=== PATIENT | female | born 1995 | race Caucasian/White ===

== ENCOUNTER 2018-09-22 12:15 | Outpatient (CLI) | payer MEDICAID ==
[2018-09-22 13:56] LABS: APPEARANCE,URINE CLEAR; BILIRUBIN,URINE NEGATIVE (NEGATIVE); COLOR,URINE STRAW; GLUCOSE, URINE NEGATIVE (NEGATIVE); KETONES,URINE NEGATIVE (NEGATIVE); LEUKOCYTE ESTERASE,URINE TRACE (NEGATIVE); NITRITE,URINE NEGATIVE (NEGATIVE); PROTEIN,URINE NEGATIVE (NEGATIVE); URINE SPECIFIC GRAVITY 1.004; UROBILINOGEN,URINE NEGATIVE mg/dL (<2.0)
[2018-09-22 14:11] LABS: BACTERIA (WET MOUNT) 4+ BACTERIA SEEN; RBCS (WET MOUNT) NO RBCS SEEN; T.VAGINALIS (WET MOUNT) NO TRICHOMONAS SEEN; WBCS (WET MOUNT) RARE WBCS SEEN; YEAST (WET MOUNT) NO YEAST SEEN
--- NOTE | 2018-09-22 14:20 | PDOC TRANSFER SUMMARY ---
General Admission Date: 09/22/18 Transfer Date: 09/22/18 Accepting Facility: [facility] Accepting Physician: Dr Mirza Resuscitation Status: Full Code - Transfer Diagnosis (1) Incompetent cervix in Is this a current diagnosis for this admission?: Yes - Diet/Activity Discharge Diet: Regular Discharge Activity: Bedrest Hospital Course Hospital Course: Pt is a 23 yo at 21w6d in first . Sono last month showed a 5 cm cervical length. Today she was seen at the health dept and the cervix was visually dialated at the pap smear. She was sent here by squad. By sono the baby is in breech position, appropriate size and normal fluid. The low segment appears dialated. On exam the cervix appears 2-3 cm with membranes visible. The membranes do not prolapse into the vagina. Physical Exam General appearance: PRESENT: no acute distress, well-developed, well-nourished Head exam: PRESENT: atraumatic, normocephalic Respiratory exam: PRESENT: clear to auscultation roxana. ABSENT: rales, rhonchi, wheezes Cardiovascular exam: PRESENT: RRR. ABSENT: diastolic murmur, rubs, systolic murmur Neurological exam: PRESENT: alert, awake, oriented to person, oriented to place, oriented to time, oriented to situation, CN II-XII grossly intact. ABSENT: motor sensory deficit Psychiatric exam: PRESENT: appropriate affect, normal mood. ABSENT: homicidal ideation, suicidal ideation Results Laboratory Results: 09/22/18 12:22 Urine Color STRAW Urine Appearance CLEAR Urine pH 7.0 Ur Specific [place] 1.004 Urine Protein NEGATIVE Urine Glucose (UA) NEGATIVE Urine Ketones NEGATIVE Urine Blood NEGATIVE Urine Nitrite NEGATIVE Ur Leukocyte Esterase TRACE H Urine WBC (Auto) 2 Urine RBC (Auto) 1 Impressions: Incompetent cervix. Plan Discharge Plan: Plan to place in trendelenberg position, marie catheter. Consider rescue cerclage.
[2018-09-22 14:25] LABS: URINE AMPHETAMINES SCREEN NEGATIVE; URINE BARBITURATES SCREEN NEGATIVE; URINE BENZODIAZEPINES SCREEN NEGATIVE; URINE COCAINE SCREEN NEGATIVE; URINE MARIJUANA (THC) SCREEN NEGATIVE; URINE METHADONE SCREEN NEGATIVE; URINE PHENCYCLIDINE SCREEN NEGATIVE
[2018-09-22 14:30] LABS: ABSOLUTE BASOPHILS # (AUTO) 0.1 10^3/uL (0.0-0.2); ABSOLUTE LYMPHOCYTES (AUTO) 1.3 10^3/uL (0.5-4.7); ABSOLUTE MONOCYTES (AUTO) 0.5 10^3/uL (0.1-1.4); ABSOLUTE NEUT (AUTO) 11.3 10^3/uL (1.7-8.2); BASOPHILS % (AUTO) 0.5 % (0-2); EOSINOPHILS % (AUTO) 0.1 % (0-6); HEMATOCRIT 32.6 % (36.0-47.0); HEMOGLOBIN 11.5 g/dL (12.0-15.5); LYMPHOCYTES % (AUTO) 9.8 % (13-45); MEAN CORPUSCULAR HEMOGLOBIN 32.5 pg (27.0-33.4); MEAN CORPUSCULAR HGB CONC 35.3 g/dL (32.0-36.0); MEAN CORPUSCULAR VOLUME 92 fl (80-97); MONOCYTES % (AUTO) 4.1 % (3-13); PLATELET COUNT 143 10^3/uL (150-450); RED BLOOD COUNT 3.55 10^6/uL (3.72-5.28); RED CELL DISTRIBUTION WIDTH 13.6 % (11.5-14.0); SEGMENTED NEUTROPHILS % (AUTO) 85.5 % (42-78); TOTAL CELLS COUNTED % (AUTO) 100 %; WHITE BLOOD COUNT 13.2 10^3/uL (4.0-10.5)
--- NOTE | 2018-09-22 14:36 | RADIOLOGY REPORT (SQ) ---
EXAM DESCRIPTION: U/S OB LIMITED COMPLETED DATE/TIME: 09/22/2018 2:22 pm REASON FOR STUDY: bedside abdominal cervical length sono COMPARISON: None. TECHNIQUE: Limited transabdominal grayscale ultrasound for evaluation of specific requested obstetri kylah parameters. LIMITATIONS: None. FINDINGS: EGA: 21 week 4 day. IRA: 01/29/2019. EFW: 446 g. CERVIX: The cervix is effaced with open cervical os and bulging membranes. JOHNNY: Largest pocket 5.2 cm. FHR: 144 beats per minute. PRESENTATION: Breech. PLACENTA: Anterior ANATOMY: Not assessed OTHER: No other significant findings. IMPRESSION: LIMITED OBSTETRICAL ULTRASOUND WITH MEASURED PARAMETERS DELINEATED ABOVE. Trimester of : Second trimester - 13 weeks 1 day to 27 weeks 6 days. COMMENT: Dr. Rubi Romero was in attendance at the patient's bedside during the exam. TECHNICAL DOCUMENTATION: JOB ID: [id number] [employer]- All Rights Reserved Reading location - IP/workstation name: [email or web address]
[2018-09-22 15:39] LABS: CHLAM PCR NOT DETECTED (NOT DETECT); GON PCR NOT DETECTED (NOT DETECT)
== END 2018-09-22 17:00 | disposition short-term general hospital (02) ==
LOC: LC 12:15
PROVIDERS: ATTEND Obstetrics & Gynecology
PROC: 4A1HXCZ Monitoring of Products of Conception, Cardiac Rate, External Approach (ICD-10-PCS; principal; 2018-09-22)
DX: O34.32 Maternal care for cervical incompetence, second trimester (principal); Z3A.21 21 weeks gestation of pregnancy
CPT/HCPCS: 36415; 76815; 80307; 81001; 85025; 86850; 86900; 86901; 87210; 87491; 87591

== ENCOUNTER 2019-01-27 00:17 | Inpatient (IN) | payer MEDICAID ==
[2019-01-27 00:57] LABS: APPEARANCE,URINE SLIGHTLY-CLOUDY; BILIRUBIN,URINE NEGATIVE (NEGATIVE); COLOR,URINE YELLOW; GLUCOSE, URINE NEGATIVE (NEGATIVE); KETONES,URINE NEGATIVE (NEGATIVE); LEUKOCYTE ESTERASE,URINE MODERATE (NEGATIVE); NITRITE,URINE NEGATIVE (NEGATIVE); PROTEIN,URINE NEGATIVE (NEGATIVE); URINE SPECIFIC GRAVITY 1.009; UROBILINOGEN,URINE NEGATIVE mg/dL (<2.0)
[2019-01-27 01:25] LABS: URINE AMPHETAMINES SCREEN NEGATIVE; URINE BARBITURATES SCREEN NEGATIVE; URINE BENZODIAZEPINES SCREEN NEGATIVE; URINE COCAINE SCREEN NEGATIVE; URINE MARIJUANA (THC) SCREEN NEGATIVE; URINE METHADONE SCREEN NEGATIVE; URINE PHENCYCLIDINE SCREEN NEGATIVE
[2019-01-27] MEDS: RINGERS SOLUTION,LACTATED 1,000 ML IV PRN ×2 (02:45→09:30)
[2019-01-27] MEDS ORDERED: LIDOCAINE 1% INJ-PF (10 MG/ML) 30 ML SDV ONE (03:08)
[2019-01-27] MEDS ORDERED: MISOPROSTOL 0.2 MG TABLET ONE (03:08)
[2019-01-27] MEDS ORDERED: OXYTOCIN 10 UNIT/ML VIAL ONE (03:08)
[2019-01-27] MEDS ORDERED: OXYTOCIN/NORMAL SALINE 20 UNIT/1,000 ML RTUINJ ONE (03:08)
[2019-01-27] MEDS ORDERED: EPHEDRINE SULFATE INJ 50 MG/1 ML AMPULE ONE (03:16)
[2019-01-27] MEDS ORDERED: BUPIVACAINE HCL 0.25 % INJ/PF (2.5 MG/1 ML) 30 ML VIAL ONE (03:16)
[2019-01-27] MEDS ORDERED: FENTANYL/BUPIVACAINE/NS/PF 300 MCG/150 ML RTUINJ EPI ONE (03:16)
[2019-01-27 03:23] LABS: ABSOLUTE LYMPHOCYTES (AUTO) 1.3 10^3/uL (0.5-4.7); ABSOLUTE MONOCYTES (AUTO) 0.8 10^3/uL (0.1-1.4); ABSOLUTE NEUT (AUTO) 10.9 10^3/uL (1.7-8.2); BASOPHILS % (AUTO) 0.3 % (0-2); EOSINOPHILS % (AUTO) 0.2 % (0-6); HEMATOCRIT 28.7 % (36.0-47.0); HEMOGLOBIN 9.3 g/dL (12.0-15.5); LYMPHOCYTES % (AUTO) 9.9 % (13-45); MEAN CORPUSCULAR HEMOGLOBIN 26.5 pg (27.0-33.4); MEAN CORPUSCULAR HGB CONC 32.3 g/dL (32.0-36.0); MEAN CORPUSCULAR VOLUME 82 fl (80-97); PLATELET COUNT 143 10^3/uL (150-450); RED CELL DISTRIBUTION WIDTH 15.2 % (11.5-14.0); SEGMENTED NEUTROPHILS % (AUTO) 83.6 % (42-78); TOTAL CELLS COUNTED % (AUTO) 100 %; WHITE BLOOD COUNT 13.1 10^3/uL (4.0-10.5)
--- NOTE | 2019-01-27 07:20 | Admission Physical ---
Datetime Report Generated by CPN: 01/27/2019 07:20 CURRENT ADMISSION Chief Complaint: Uterine Contractions Indication for Induction: Not Applicable Admit Impression : Term, Intrauterine ; Active Labor Admit Plan: Admit to Unit; Initiate Labor Protocol ALLERGIES Medication Allergies: No Medication Allergies: No Known Allergies (01/27/2019) Latex: No Latex Allergies Food Allergies: none Environmental Allergies: none OBSTETRICAL HISTORY EDC: 01/27/2019 00:00 : 1 Para: 0 Gestational Diabetes: No Rh Sensitization: No Incompetent Cervix: No JESSICA: No Infertility: No ART Treatment: No Uterine Anomaly: No IUGR: No Hx Previous C/S: No Macrosomia: No Hx Loss/Stillborn: No PIH: No Hx : No Placenta Previa/Abruption: No Depression/PP Depression: No PTL/PROM: No Post Hemorrhage: No Current Procedures: Ultrasound; NST Obstetrical History Comments: G1-current late to PN SEE RECORDS Alcohol: No Marijuana : No Cocaine: No Other Illicit Drugs: No Cigarettes: Never Smoker. [id number] MEDICAL HISTORY Diabetes: No Blood Transfusion: No Pulmonary Disease (Asthma, TB): No Breast Disease: No Hypertension: No Acute Coordinator Surgery: No Heart Disease: No Hosp/Surgery: No Autoimmune Disorder: No Anesthetic Complications: No Kidney Disease: No Abnormal Pap Smear: No Neuro/Epilepsy: No Psychiatric Disorders: No Other Medical Diseases: No Hepatitis/Liver Disease: No Significant Family History: No Varicosities/Phlebitis: No Trauma/Violence : No Thyroid Dysfunction: No INFECTIOUS HISTORY Gonorrhea: No Genital Herpes: No Chlamydia: No Tuberculosis: No Syphilis: No Hepatitis: No HIV/AIDS Exposure: No Rash or Viral Illness: No HPV: No PHYSICAL EXAM General: Normal HEENT: Normal Neurologic: Normal Thyroid: Normal Heart: Normal Lungs: Normal Breast: Normal Back: Normal Abdomen: Normal Genitourinary Exam: Normal Extremities: Normal DTRs: Normal Pelvic Type: Adequate Vital Signs: Reviewed; Within Normal Limits VAGINAL EXAM Dilatation: 4 Effacement: 75 Station: -3 MEMBRANES Pooling: Negative Membranes: Intact Amniotic Fluid Color: Clear FETUS A EGA: 40.0 Monitoring: External US FHR- Baseline: 130 Variability: Moderate 6-25bpm Accelerations: 15X15 Decelerations: None FHR Category: Category I Estimated Weight (gm): 3500 Presentation: Vertex PLANS FOR LABOR AND DELIVERY Labor and Delivery: None Pain Management: Epidural Feeding Preference: Both Benefit of Breast Feed Discussed: Yes Circumcision: Yes INFORMED CONSENT Signature: with User ID: [email or web address]
[2019-01-27] MEDS ORDERED: FAMOTIDINE INJ/PF 20 MG/2 ML SDV IV ONE ×2 (09:14→12:30)
[2019-01-27] MEDS ORDERED: ONDANSETRON HCL INJ/PF 4 MG/2 ML SDV ONE (09:51)
[2019-01-27] MEDS ORDERED: ONDANSETRON HCL INJ/PF 4 MG/2 ML SDV IV ONE (12:30)
[2019-01-27] MEDS ORDERED: DIPH/PERTUSS(ACELL)/TETANUS VAC/PF 0.5 ML SYR (>=10YO) IM PRN (15:54)
[2019-01-27] MEDS ORDERED: MEASLES,MUMPS&RUBELLA VACC/PF 0.5 ML VIAL SUBCUT PRN (15:54)
[2019-01-27] MEDS ORDERED: BENZOCAINE/MENTHOL AEROSOL SPRAY 56 ML TOP PRN (15:54)
[2019-01-27] MEDS ORDERED: ACETAMINOPHEN WITH CODEINE #3 TABLET PO PRN ×2 (15:54)
[2019-01-27] MEDS ORDERED: DIBUCAINE 1% OINTMENT 56 GM TP PRN (15:54)
[2019-01-27] MEDS ORDERED: OXYTOCIN/NORMAL SALINE 20 UNIT/1,000 ML RTUINJ IV PRN (15:54)
[2019-01-27] MEDS ORDERED: ZOLPIDEM TARTRATE 5 MG TABLET PO PRN (15:54)
[2019-01-27] MEDS: DOCUSATE SODIUM 100 MG CAPSULE PO SCH (17:25)
[2019-01-27] MEDS: FERROUS SULFATE 325 MG TABLET PO SCH (17:25)
[2019-01-27] MEDS ORDERED: PSEUDOEPHEDRINE HCL 30 MG TABLET PO PRN (20:26)
[2019-01-27] MEDS ORDERED: DIPHENHYDRAMINE HCL 25 MG CAPSULE PO PRN (20:26)
[2019-01-27] MEDS ORDERED: PROMETHAZINE HCL INJ 25 MG/1 ML VIAL IV PRN (20:26)
[2019-01-27] MEDS ORDERED: NA PHOS,M-B/NA PHOS,DI-BA (ADULT) 133 ML ENEMA PR PRN (20:26)
[2019-01-27] MEDS ORDERED: GLYCERIN/WITCH HAZEL LEAF 1 EACH MED..WIPE TP PRN (20:26)
[2019-01-27] MEDS ORDERED: MAGNESIUM HYDROXIDE SUSP 30 ML UDCUP PO PRN (20:26)
[2019-01-27] MEDS ORDERED: PROMETHAZINE HCL 25 MG TABLET PO PRN (20:26)
[2019-01-27] MEDS ORDERED: ACETAMINOPHEN 325 MG TABLET PO PRN (20:26)
[2019-01-27] MEDS ORDERED: PROMETHAZINE HCL 25 MG SUPP.RECT PR PRN (20:26)
[2019-01-27] MEDS: FAMOTIDINE 20 MG TABLET PO SCH (21:32)
[2019-01-27] MEDS: IBUPROFEN 800 MG TABLET PO SCH (21:32)
[2019-01-28] MEDS: IBUPROFEN 800 MG TABLET PO SCH ×3 (05:24→22:23)
[2019-01-28] MEDS: PRENATAL VITAMIN W DHA CAPSULE PO SCH (09:14)
[2019-01-28] MEDS: FAMOTIDINE 20 MG TABLET PO SCH ×2 (09:14→22:23)
[2019-01-28] MEDS: DOCUSATE SODIUM 100 MG CAPSULE PO SCH ×2 (09:14→17:20)
[2019-01-28] MEDS: FERROUS SULFATE 325 MG TABLET PO SCH ×2 (09:15→17:20)
[2019-01-28] MEDS: SENNOSIDES/DOCUSATE 8.6-50 MG 1 EACH TABLET PO SCH (09:15)
[2019-01-28 09:18] LABS: HEMATOCRIT 30.2 % (36.0-47.0); HEMOGLOBIN 9.5 g/dL (12.0-15.5); MEAN CORPUSCULAR HEMOGLOBIN 26.3 pg (27.0-33.4); MEAN CORPUSCULAR HGB CONC 31.6 g/dL (32.0-36.0); MEAN CORPUSCULAR VOLUME 83 fl (80-97); PLATELET COUNT 128 10^3/uL (150-450); RED BLOOD COUNT 3.62 10^6/uL (3.72-5.28); RED CELL DISTRIBUTION WIDTH 15.4 % (11.5-14.0); WHITE BLOOD COUNT 18.2 10^3/uL (4.0-10.5)
--- NOTE | 2019-01-28 10:12 | PDOC PROGRESS REPORT ---
Subjective-OB Progress Note for:: 01/28/19 Subjective: Doing well, no c/o breast feeding, voiding, eating well Physical Exam (OB) Vital Signs: Temp Pulse Resp BP Pulse Ox 98.8 F 85 16 125/78 100 01/28/19 07:28 01/28/19 07:28 01/28/19 07:28 01/28/19 07:28 01/28/19 07:28 Intake & Output 01/27/19 01/28/19 01/29/19 06:59 06:59 06:59 Intake Total 844 Balance 844 Weight 68.4 kg - PIH/Pre-Eclampsia Clonus: Negative Headache: Absent Epigastric Pain: No Visual Changes: No - Lochia Lochia Amount: Scant < 10 ml Lochia Color: Rubra/Red - Abdomen Description: Soft Hernia Present: No Fundal Description: Firm, Midline Fundal Height: u/u - u/2 Objective-Diagnostic Laboratory: 01/28/19 06:35 01/28/19 06:35 WBC 18.2 H RBC 3.62 L Hgb 9.5 L Hct 30.2 L MCV 83 MCH 26.3 L MCHC 31.6 L RDW 15.4 H Plt Count 128 L Assessment and Plan(PN) - Assessment and Plan (1) Gestational thrombocytopenia Qualifiers: Trimester: first trimester Qualified Code(s): O99.111 - Other diseases of the blood and blood-forming organs and certain disorders involving the immune mechanism complicating , first trimester; D69.6 - Thrombocytopenia, unspecified Is this a current diagnosis for this admission?: Yes (2) Obstetric labial laceration, delivered, current hospitalization Is this a current diagnosis for this admission?: Yes (3) Anemia affecting Qualifiers: Trimester: first trimester Qualified Code(s): O99.011 - Anemia complicating , first trimester Is this a current diagnosis for this admission?: Yes (5) Incompetent cervix in Qualifiers: Trimester: second trimester Qualified Code(s): O34.32 - Maternal care for cervical incompetence, second trimester Is this a current diagnosis for this admission?: Yes - Time Spent with Patient Time with patient: Less than 15 minutes Medications reviewed and adjusted accordingly: Yes - Disposition Anticipated Discharge: Home
[2019-01-29] MEDS: IBUPROFEN 800 MG TABLET PO SCH (06:21)
[2019-01-29 08:09] VITALS: BP 116/76
[2019-01-29] MEDS: PRENATAL VITAMIN W DHA CAPSULE PO SCH (10:33)
[2019-01-29] MEDS: FAMOTIDINE 20 MG TABLET PO SCH (10:33)
[2019-01-29] MEDS: DOCUSATE SODIUM 100 MG CAPSULE PO SCH (10:33)
[2019-01-29] MEDS: FERROUS SULFATE 325 MG TABLET PO SCH (10:33)
[2019-01-29] MEDS: SENNOSIDES/DOCUSATE 8.6-50 MG 1 EACH TABLET PO SCH (10:33)
--- NOTE | 2019-01-29 12:33 | PDOC DISCHARGE SUMMARY ---
Final Diagnosis Discharge Date: 01/29/19 - Final Diagnosis (1) Gestational thrombocytopenia Is this a current diagnosis for this admission?: Yes (2) Obstetric labial laceration, delivered, current hospitalization Is this a current diagnosis for this admission?: Yes (3) Vaginal delivery Is this a current diagnosis for this admission?: Yes (4) Normal course Is this a current diagnosis for this admission?: Yes Discharge Data - Discharge Medication Home Medications: Pnv No.103/Folic/Om3s/Fish Oil [ Gummies] 1 tab PO DAILY 01/27/19 Reason(s) for Admission: Onset of Labor Procedures: NST Intrapartum Procedure(s): Spontaneous Vaginal Delivery Complication(s): Laceration-Periurethral Laceration-Degree: 1st - Diagnosis Test Laboratory: Temp Pulse Resp BP Pulse Ox 98.6 F 100 16 116/76 99 01/29/19 09:36 01/29/19 09:36 01/29/19 09:36 01/29/19 09:36 01/29/19 09:36 01/27/19 01/27/19 01/28/19 00:30 03:14 06:35 RBC 3.50 L 3.62 L Hgb 9.3 L 9.5 L Hct 28.7 L 30.2 L Urine Opiates Screen NEGATIVE - Discharge information/Instructions Discharge Activity: Balance Activity w/Rest, Pelvic Rest Discharge Diet: Regular Disposition: HOME, SELF-CARE Follow up with: [facility] in: 4, Weeks
--- NOTE | 2019-01-30 12:09 | Delivery Summary ---
Del Sum A-C Datetime Report Generated by CPN: 01/30/2019 12:08 DELIVERY PERSONNEL DELIVERY PERSONNEL: [id number] Delivery Doctor:: Rebecca John CNM Labor and Delivery Nurse:: MCKENZIE Hirsch Labor and Delivery Nurse:: Selam Townsend RN Nursery Nurse:: Gayatri Puentes RN China Decorator/DOCKET SPECIALIST: Marilu Santos ST [place] Decorator/DOCKET SPECIALIST: Robby Calderón, SHIPPER AND RECEIVING MATERNAL INFORMATION Delivery Anesthesia: Epidural Medications After Delivery: Pitocin Bolus-Please Comment; Pitocin Drip 20 Units/1000ml NSS Meds After Delivery Comment: Pitocin 20 units in 1 L NS bolusing per order Delivery QBL: 100 Delivery QBL Comment: 100 Maternal Complications: None Provider Comments: SVDVM over intact perineum, OA to SUNIL, nuchal cord reduced, ant shoulder delivered easily followed by body. to mothers abd, delayed cord clamping, then clamped x 2 and cut per FOB. Placenta intact via clifton, bleeding stabilized, FF at U. Periurethral lacerations repaired. Mother and infant stable. LABOR SUMMARY EDC: 01/27/2019 00:00 No. Babies in Womb: 1 Attempted: No Labor Anesthesia: Epidural LABOR INFORMATION Reason for Induction: Not Applicable Onset of Labor: 01/27/2019 06:43 Complete Dilatation: 01/27/2019 12:20 Oxytocin: N/A Group B Beta Strep: negative Steroids Given: None Reason Steroids Not Administered: Not Applicable MEMBRANES Membranes Rupture Method: Spontaneous Membranes Rupture Method: Spontaneous Rupture of Membranes: 01/27/2019 06:41 Length of Rupture (hr): 7.12 Amniotic Fluid Color: Clear Amniotic Fluid Color: Clear Amniotic Fluid Amount: Moderate Amniotic Fluid Amount: Small Amniotic Fluid Odor: Normal STAGES OF LABOR Stage 1 hr: 5 Stage 1 min: 37 Stage 2 hr: 1 Stage 2 min: 28 Stage 3 hr: 0 Stage 3 min: 9 Total Time in Labor hr: 7 Total Time in Labor min: 14 VAGINAL DELIVERY Episiotomy: None Laceration #1: Periurethral Other Laceration: bilateral periurethral Laceration Repair: Yes Laceration Repair Note: 2.0 chromic for bilateral periurethral repair 1%lidocaine used Sponge Count Correct: Yes Sharps Count Correct: Yes CSECTION DELIVERY Primary Indication: N/A Secondary Indication: N/A CSection Incidence: N/A Labor: N/A Elective: N/A CSection Incision: N/A BABY A INFORMATION Infant Delivery Date/Time: 01/27/2019 13:48 Method of Delivery: Vaginal Method of Delivery: Vaginal Born in Route : No : N/A Forceps: N/A Vacuum Extraction: N/A Shoulder Dystocia : No PRESENTATION/POSITION BABY A Presentation: Cephalic Cephalic Presentation: Vertex Vertex Position: Right Occipital Anterior Breech Presentation: N/A PLACENTA INFORMATION BABY A Placenta Delivery Time : 01/27/2019 13:57 Placenta Method of Delivery: Spontaneous Placenta Status: Delivered SCORES BABY A Heart Rate 1 min: >100 bpm Resp Effort 1 min: Good Cry Reflex Irritability 1 min: Cough or Sneeze or Pulls Away Muscle Tone 1 min: Active Motion Color 1 min: Blue/Pale Resuscitation Effort 1 min: Tactile Stimulation SCORE 1 MIN: 8 Heart Rate 5 min: >100 bpm Resp Effort 5 min: Good Cry Reflex Irritability 5 min: Cough or Sneeze or Pulls Away Muscle Tone 5 min: Active Motion Color 5 min: Body [place], Extremities Blue Resuscitation Effort 5 min: N/A SCORE 5 MIN: 9 INFANT INFORMATION BABY A Gestational Age at Delivery: 40.0 Gestational Status: Full Term- 39- 40.6 Weeks Outcome : Liveborn Infant Condition : Stable Infant Sex: Male Sex: Male IDENTIFICATION BABY A Verification Date/Time: 01/27/2019 13:57 ID Band Number: [id number] Mother's Name Verified: Yes RN Verifying : MEstrella Townsend, RN, SEstrella Arellano, RN WEIGHT/LENGTH BABY A Birthweight (gm): 3614 Weight (lb): 7 Weight (oz): 15 Infant Length (in): 21.00 Length (cm): 53.34 CORD INFORMATION BABY A No. Cord Vessels: 3 Nuchal Cord : N/A Cord Blood Taken: Yes-For Eval (Mom's Blood Type - or O+) Suction: Mouth; Nose ASSESSMENT BABY A Infant Complications: Multiple Late Decels; Multiple Variable Decels Physical Findings at Delivery: Within Normal Limits Infant Respirations: Appears Normal Skin to Skin: Yes Smooth And Burr Worker Composites/ALS Called : No Infant Care By: Rose Dhaval, RN Transferred To: Remains with Mother BABY B INFORMATION : N/A SIGNATURES Assignment: Brunilda Mathur MD Signature: with User ID: [email or web address] : with User ID: [email or web address] : I was personally available for consultation and serving as supervising physician for the MLP.
== END 2019-01-29 14:10 | disposition home or self-care (01) | DRG 807 ==
LOC: LC 00:17 → LR 02:40 → 2S 16:00
PROVIDERS: ADMIT Obstetrics & Gynecology; ATTEND Obstetrics & Gynecology
PROC: 10E0XZZ Delivery of Products of Conception, External Approach (ICD-10-PCS; principal; 2019-01-27)
PROC: 0UQMXZZ Repair Vulva, External Approach (ICD-10-PCS; 2019-01-27)
PROC: 3E0234Z Introduction of Serum, Toxoid and Vaccine into Muscle, Percutaneous Approach (ICD-10-PCS; 2019-01-28)
DX: O99.12 Other diseases of the blood and blood-forming organs and certain disorders involving the immune mechanism complicating childbirth (principal); Z37.0 Single live birth; O26.893 Other specified pregnancy related conditions, third trimester; O76 Abnormality in fetal heart rate and rhythm complicating labor and delivery; Z67.11 Type A blood, Rh negative; D69.6 Thrombocytopenia, unspecified; O69.81X0 Labor and delivery complicated by cord around neck, without compression, not applicable or unspecified; O71.82 Other specified trauma to perineum and vulva; Z3A.40 40 weeks gestation of pregnancy
CPT/HCPCS: 36415; 80307; 81005; 85025; 85027; 85461; 86592; 86850; 86870; 86900; 86901; 88307; 94760; J2405; J2590; J2790; J3010; J3490; S0028

== ENCOUNTER 2020-02-27 00:40 | Inpatient (IN) | payer MEDICAID ==
[2020-02-27 01:25] LABS: APPEARANCE,URINE CLEAR; BILIRUBIN,URINE NEGATIVE (NEGATIVE); COLOR,URINE STRAW; GLUCOSE, URINE NEGATIVE (NEGATIVE); KETONES,URINE NEGATIVE (NEGATIVE); LEUKOCYTE ESTERASE,URINE SMALL (NEGATIVE); NITRITE,URINE NEGATIVE (NEGATIVE); PROTEIN,URINE NEGATIVE (NEGATIVE); URINE SPECIFIC GRAVITY 1.003; UROBILINOGEN,URINE NEGATIVE mg/dL (<2.0)
[2020-02-27 02:14] LABS: URINE AMPHETAMINES SCREEN NEGATIVE; URINE BARBITURATES SCREEN NEGATIVE; URINE BENZODIAZEPINES SCREEN NEGATIVE; URINE COCAINE SCREEN NEGATIVE; URINE MARIJUANA (THC) SCREEN NEGATIVE; URINE METHADONE SCREEN NEGATIVE; URINE PHENCYCLIDINE SCREEN NEGATIVE
[2020-02-27 02:18] LABS: ABSOLUTE EOSINOPHILS # (AUTO) 0.1 10^3/uL (0.0-0.6); ABSOLUTE LYMPHOCYTES (AUTO) 1.4 10^3/uL (0.5-4.7); ABSOLUTE MONOCYTES (AUTO) 0.6 10^3/uL (0.1-1.4); ABSOLUTE NEUT (AUTO) 6.2 10^3/uL (1.7-8.2); BASOPHILS % (AUTO) 0.4 % (0-2); EOSINOPHILS % (AUTO) 1.2 % (0-6); HEMATOCRIT 27.2 % (36.0-47.0); HEMOGLOBIN 8.7 g/dL (12.0-15.5); MEAN CORPUSCULAR HEMOGLOBIN 24.5 pg (27.0-33.4); MEAN CORPUSCULAR HGB CONC 31.9 g/dL (32.0-36.0); MEAN CORPUSCULAR VOLUME 77 fl (80-97); MONOCYTES % (AUTO) 7.7 % (3-13); PLATELET COUNT 136 10^3/uL (150-450); RED BLOOD COUNT 3.54 10^6/uL (3.72-5.28); RED CELL DISTRIBUTION WIDTH 18.2 % (11.5-14.0); SEGMENTED NEUTROPHILS % (AUTO) 73.7 % (42-78); TOTAL CELLS COUNTED % (AUTO) 100 %; WHITE BLOOD COUNT 8.4 10^3/uL (4.0-10.5)
[2020-02-27] MEDS ORDERED: EPHEDRINE SULFATE INJ 50 MG/1 ML AMPULE ONE (02:44)
[2020-02-27] MEDS ORDERED: FENTANYL/BUPIVACAINE/NS/PF 300 MCG/150 ML RTUINJ EPI ONE (02:44)
[2020-02-27] MEDS ORDERED: ROPIVACAINE HCL 0.2% INJ/PF (2 MG/ML) 20 ML SDV ONE (02:45)
[2020-02-27] MEDS: RINGERS SOLUTION,LACTATED 1,000 ML IV PRN ×2 (02:53→06:17)
--- NOTE | 2020-02-27 03:10 | Admission Physical ---
Datetime Report Generated by CPN: 02/27/2020 03:10 CURRENT ADMISSION Chief Complaint: Uterine Contractions Indication for Induction: Not Applicable Admit Impression : Term, Intrauterine ; Active Labor; Intact Membranes Admit Plan: Admit to Unit; Initiate Labor Protocol ALLERGIES Medication Allergies: No Medication Allergies: No Known Allergies (01/27/2019) Latex: No Latex Allergies OBSTETRICAL HISTORY EDC: 02/21/2020 00:00 : 2 Para: 1 Term: 1 : 0 Livin Gestational Diabetes: No Incompetent Cervix: No JESSICA: No Infertility: No Uterine Anomaly: No IUGR: No Hx Previous C/S: No Macrosomia: No Hx Loss/Stillborn: No PIH: No Hx : No Placenta Previa/Abruption: No Depression/PP Depression: No PTL/PROM: No Post Hemorrhage: No Current Procedures: Ultrasound; NST PHYSICAL EXAM General: Normal HEENT: Normal Neurologic: Normal Thyroid: Deferred Heart: Normal Lungs: Normal Breast: Deferred Back: Normal Abdomen: Normal Genitourinary Exam: Normal Extremities: Normal DTRs: Normal Pelvic Type: Adequate Vital Signs: Reviewed VAGINAL EXAM Dilatation: 3 Effacement: 70 Station: 1 MEMBRANES Membranes: Intact FETUS A EGA: 40.6 Monitoring: External US FHR- Baseline: 120 Variability: Moderate 6-25bpm Accelerations: 15X15 Decelerations: None FHR Category: Category I Presentation: Vertex Admit Comment: 24yo at 40+6ega presents for regular uterine contractions. She desires epidural. Bilateral renal dilation - notify peds at delivery. also c/b anemia. Pelvis proven to 7#15oz. GBS negative. Admit to labor and delivery for anticipated vaginal delivery. INFORMED CONSENT Informed Consent Obtained: Vaginal Delivery; Risks, Benefits and Alternatives Discussed Signature: with User ID: [email or web address]
[2020-02-27] MEDS ORDERED: ONDANSETRON HCL INJ/PF 4 MG/2 ML SDV IV ONE (06:36)
[2020-02-27] MEDS ORDERED: ONDANSETRON HCL INJ/PF 4 MG/2 ML SDV ONE (06:40)
[2020-02-27] MEDS ORDERED: OXYTOCIN/0.9 % SODIUM CHLORIDE 30 UNIT/500 ML RTUINJ ONE (07:21)
[2020-02-27] MEDS ORDERED: LIDOCAINE 1% INJ-PF (10 MG/ML) 30 ML SDV ONE (07:21)
[2020-02-27] MEDS ORDERED: MISOPROSTOL 0.2 MG TABLET ONE (07:21)
--- NOTE | 2020-02-27 07:47 | L&D Progress Notes ---
PROGRESS NOTES Datetime Report Generated by CPN: 02/27/2020 07:47 PROGRESS NOTE Impression: Normal Progression of Labor Informed Consent Obtained: Vaginal Delivery; Risks, Benefits and Alternatives Discussed Comment: 7-8/80/0, head not well applied. AROM with clear fluid. Anticipate VAGINAL EXAM Dilatation: 3 Effacement: 70 Station: 1 LAST VAGINAL EXAM-NURSING Nursing Exam Dilitation: 7.5 Nursing Exam Effacement: 80 Nursing Exam Station: 0 MEMBRANES Membranes: Intact FETUS A Presentation: Vertex SIGNATURE SIGNATURE: [id number] Signature: with User ID: [email or web address]
[2020-02-27] MEDS ORDERED: DIPHENHYDRAMINE HCL 25 MG CAPSULE PO PRN (08:54)
[2020-02-27] MEDS ORDERED: MAGNESIUM HYDROXIDE SUSP 30 ML UDCUP PO PRN (08:54)
[2020-02-27] MEDS ORDERED: GLYCERIN/WITCH HAZEL LEAF 1 EACH MED..WIPE TP PRN (08:54)
[2020-02-27] MEDS ORDERED: MEASLES,MUMPS&RUBELLA VACC/PF 0.5 ML VIAL SUBCUT PRN (08:54)
[2020-02-27] MEDS ORDERED: OXYTOCIN/0.9 % SODIUM CHLORIDE 30 UNIT/500 ML RTUINJ IV PRN (08:54)
[2020-02-27] MEDS ORDERED: DIBUCAINE 1% OINTMENT 28 GM TP PRN (08:54)
[2020-02-27] MEDS ORDERED: NA PHOS,M-B/NA PHOS,DI-BA (ADULT) 133 ML ENEMA PR PRN (08:54)
[2020-02-27] MEDS ORDERED: ACETAMINOPHEN WITH CODEINE #3 TABLET PO PRN (08:54)
[2020-02-27] MEDS ORDERED: PSEUDOEPHEDRINE HCL 30 MG TABLET PO PRN (08:54)
[2020-02-27] MEDS ORDERED: ZOLPIDEM TARTRATE 5 MG TABLET PO PRN (08:54)
[2020-02-27] MEDS ORDERED: PROMETHAZINE HCL INJ 25 MG/1 ML VIAL IV PRN (08:54)
[2020-02-27] MEDS ORDERED: PROMETHAZINE HCL 25 MG SUPP.RECT PR PRN (08:54)
[2020-02-27] MEDS ORDERED: DIPH/PERTUSS(ACELL)/TETANUS VAC/PF 0.5 ML SYR (>=10YO) IM PRN (08:54)
[2020-02-27] MEDS ORDERED: ACETAMINOPHEN 650 MG SUPP.RECT PR PRN (08:54)
[2020-02-27] MEDS ORDERED: BENZOCAINE/MENTHOL AEROSOL SPRAY 56 ML TOP PRN (08:54)
[2020-02-27] MEDS ORDERED: PROMETHAZINE HCL 25 MG TABLET PO PRN (08:54)
[2020-02-27] MEDS ORDERED: FERROUS SULFATE 325 MG TABLET PO ONE (11:08)
[2020-02-27] MEDS ORDERED: DOCUSATE SODIUM 100 MG CAPSULE ONE (11:08)
[2020-02-27] MEDS ORDERED: PRENATAL VITAMIN W DHA CAPSULE PO ONE (11:08)
[2020-02-27] MEDS ORDERED: SENNOSIDES/DOCUSATE 8.6-50 MG 1 EACH TABLET ONE (11:08)
[2020-02-27] MEDS: DOCUSATE SODIUM 100 MG CAPSULE PO SCH ×2 (11:12→17:31)
[2020-02-27] MEDS: FERROUS SULFATE 325 MG TABLET PO SCH ×2 (11:12→17:31)
[2020-02-27] MEDS: SENNOSIDES/DOCUSATE 8.6-50 MG 1 EACH TABLET PO SCH (11:12)
[2020-02-27] MEDS: PRENATAL VITAMIN W DHA CAPSULE PO SCH (11:13)
[2020-02-27] MEDS: FAMOTIDINE 20 MG TABLET PO SCH ×2 (14:09→22:51)
[2020-02-27] MEDS: IBUPROFEN 800 MG TABLET PO SCH (15:41)
[2020-02-28] MEDS: IBUPROFEN 800 MG TABLET PO SCH ×4 (00:07→21:13)
[2020-02-28 06:55] LABS: HEMOGLOBIN 8.9 g/dL (12.0-15.5); MEAN CORPUSCULAR HEMOGLOBIN 24.4 pg (27.0-33.4); MEAN CORPUSCULAR HGB CONC 31.8 g/dL (32.0-36.0); MEAN CORPUSCULAR VOLUME 77 fl (80-97); PLATELET COUNT 124 10^3/uL (150-450); RED BLOOD COUNT 3.65 10^6/uL (3.72-5.28); RED CELL DISTRIBUTION WIDTH 18.1 % (11.5-14.0)
[2020-02-28] MEDS: FERROUS SULFATE 325 MG TABLET PO SCH ×2 (09:52→18:38)
[2020-02-28] MEDS: DOCUSATE SODIUM 100 MG CAPSULE PO SCH ×2 (09:52→18:38)
[2020-02-28] MEDS: SENNOSIDES/DOCUSATE 8.6-50 MG 1 EACH TABLET PO SCH (09:52)
[2020-02-28] MEDS: PRENATAL VITAMIN W DHA CAPSULE PO SCH (09:52)
--- NOTE | 2020-02-28 10:14 | PDOC PROGRESS REPORT ---
Subjective-OB Progress Note for:: 02/28/20 Subjective: Pt doing well, no complaints. She reports light bleeding, reg diet and voiding w/o difficulty. Physical Exam (OB) Vital Signs: Temp Pulse Resp BP Pulse Ox 97.9 F 92 16 123/64 98 02/28/20 07:17 02/28/20 07:17 02/28/20 07:17 02/28/20 07:17 02/28/20 07:17 Intake & Output 02/27/20 02/28/20 02/29/20 06:59 06:59 06:59 Intake Total 1000 Balance 1000 Weight 155.5 kg 70.534 kg - Maternal Morbidity 59. Maternal Morbidity (serious complications experinced by the mother associated with labor and delivery: None of the above - Lochia Lochia Amount: Small 10-25 ml Lochia Color: Rubra/Red - Abdomen Description: Soft Hernia Present: No Fundal Description: Firm, Midline Fundal Height: u/3 - u/4 Objective-Diagnostic Laboratory: 02/28/20 06:22 02/28/20 02/28/20 06:22 06:22 WBC 12.0 H RBC 3.65 L Hgb 8.9 L Hct 28.0 L MCV 77 L MCH 24.4 L MCHC 31.8 L RDW 18.1 H Plt Count 124 L Blood Type A NEGATIVE Assessment and Plan(PN) - Assessment and Plan (1) Anemia affecting Qualifiers: Trimester: third trimester Qualified Code(s): O99.013 - Anemia complicating , third trimester Is this a current diagnosis for this admission?: Yes (2) Gestational thrombocytopenia Qualifiers: Trimester: unspecified trimester Qualified Code(s): O99.119 - Other diseases of the blood and blood-forming organs and certain disorders involving the immune mechanism complicating , unspecified trimester; D69.6 - Thrombocytopenia, unspecified Is this a current diagnosis for this admission?: Yes (3) Normal course Is this a current diagnosis for this admission?: Yes (4) Vaginal delivery Is this a current diagnosis for this admission?: Yes - Time Spent with Patient Time with patient: Less than 15 minutes - Disposition Anticipated Discharge Disposition: Home, Self Care Anticipated Discharge Timeframe: within 24 hours
[2020-02-28] MEDS: FAMOTIDINE 20 MG TABLET PO SCH ×2 (14:38→21:13)
--- NOTE | 2020-02-28 21:44 | Delivery Summary ---
Del Sum A-C Datetime Report Generated by CPN: 02/28/2020 21:43 DELIVERY PERSONNEL DELIVERY PERSONNEL: [id number] Delivery Doctor:: Dipak Kim MD Labor and Delivery Nurse:: Marley Garcia RN Nursery Nurse:: Ophelia Hutchison RN Woolen Suiting Shrinker/PROGRESSIVE DIE MAKER: Gin Patterson, ST Additional Personnel: : Gayathri Hanson RN MATERNAL INFORMATION Delivery Anesthesia: Epidural Medications After Delivery: Pitocin 30 Units in 500ml NS/D5W Delivery QBL: 200 Maternal Complications: None LABOR SUMMARY EDC: 02/21/2020 00:00 No. Babies in Womb: 1 Attempted: No Labor Anesthesia: Epidural LABOR INFORMATION Reason for Induction: Not Applicable Onset of Labor: 02/26/2020 23:00 Complete Dilatation: 02/27/2020 08:28 Oxytocin: N/A Group B Beta Strep: negative Antibiotics # of Doses: 0 Antibiotics Time of Last Dose: n/a Name of Antibiotic Given: n/a Steroids Given: None Reason Steroids Not Administered: Not Applicable MEMBRANES Membranes Rupture Method: Artificial Rupture of Membranes: 02/27/2020 07:25 Length of Rupture (hr): 1.33 Amniotic Fluid Color: Clear Amniotic Fluid Amount: Moderate Amniotic Fluid Odor: Normal STAGES OF LABOR Stage 1 hr: 9 Stage 1 min: 28 Stage 2 hr: 0 Stage 2 min: 17 Stage 3 hr: 0 Stage 3 min: 5 Total Time in Labor hr: 9 Total Time in Labor min: 50 VAGINAL DELIVERY Episiotomy: None Laceration #1: None Laceration Extension #1: N/A Laceration Repair: Not Applicable Sponge Count Correct: N/A Sharps Count Correct: N/A CSECTION DELIVERY Primary Indication: N/A Secondary Indication: N/A CSection Incidence: N/A Labor: N/A Elective: N/A CSection Incision: N/A BABY A INFORMATION Infant Delivery Date/Time: 02/27/2020 08:45 Method of Delivery: Vaginal Nurse Controlled Delivery: No Born in Route : No : N/A Forceps: N/A Vacuum Extraction: N/A Shoulder Dystocia : No PRESENTATION/POSITION BABY A Presentation: Cephalic Cephalic Presentation: Vertex Vertex Position: Right Occipital Anterior Breech Presentation: N/A PLACENTA INFORMATION BABY A Placenta Delivery Time : 02/27/2020 08:50 Placenta Method of Delivery: Spontaneous Placenta Status: Delivered SCORES BABY A Heart Rate 1 min: >100 bpm Resp Effort 1 min: Good Cry Reflex Irritability 1 min: Cough or Sneeze or Pulls Away Muscle Tone 1 min: Active Motion Color 1 min: Body [place], Extremities Blue Resuscitation Effort 1 min: Tactile Stimulation SCORE 1 MIN: 9 Heart Rate 5 min: >100 bpm Resp Effort 5 min: Good Cry Reflex Irritability 5 min: Cough or Sneeze or Pulls Away Muscle Tone 5 min: Active Motion Color 5 min: Body [place], Extremities Blue Resuscitation Effort 5 min: Tactile Stimulation SCORE 5 MIN: 9 INFORMATION BABY A Gestational Age at Delivery: 40.6 Gestational Status: Full Term- 39- 40.6 Weeks Outcome : Liveborn Infant Condition : Stable Sex: Male IDENTIFICATION BABY A Infant Verification Date/Time: 02/27/2020 10:16 ID Band Number: [id number] Mother's Name Verified: Yes Infant RN Verifying Infant: Desire Garcia, RN Additional Verifying Personnel: Elly Caballero RN WEIGHT/LENGTH BABY A Birthweight (gm): 3911 Infant Weight (lb): 8 Infant Weight (oz): 10 Length (in): 20.75 Infant Length (cm): 52.71 CORD INFORMATION BABY A No. Cord Vessels: 3 Nuchal Cord : Around Neck x1, Loose Cord Blood Taken: Yes-For Eval (Mom's Blood Type - or O+) Suction: None ASSESSMENT BABY A Infant Complications: Multiple Variable Decels Physical Findings at Delivery: Within Normal Limits Respirations: Appears Normal Skin to Skin: Yes Skin to Skin Time (min): 120 (Annotations: Data stored by Chase on behalf of user) Line Technician/ALS Called : No Infant Care By: Wilton Hutchison RN Transferred To: Remains with Mother BABY B INFORMATION : N/A SIGNATURES Signature: with User ID: [email or web address]
--- NOTE | 2020-02-28 21:44 | Birth Certificate Data ---
Cert Data Datetime Report Generated by [facility]: 02/28/2020 21:43 CERTIFICATE DATA 47a. Care: Yes (02/27/2020 01:13:Tosha Fay RN) 47b. Date of First Visit: 10/06/2019 00:00 (02/27/2020 01:13:Tosha Fay RN) 47c. Date of Last Visit: 02/25/2020 00:00 (02/27/2020 01:13:Tosha Fay RN) 47d. Number of Visits: 9 (02/27/2020 01:13:Tosha Fay RN) 48a. Number of Prev Live Births: 1 (02/27/2020 01:13:Tosha Fay RN) 48b. Now Livin (02/27/2020 01:13:Tosha Fay RN) 48c. Live Births Now : 0 (02/27/2020 01:13:QS system process) 48d. Date of Last Live : 01/27/2019 00:00 (02/27/2020 01:13:Marley Garcia RN) 48e. Losses: 0 (02/27/2020 01:13:Tosha Fay RN) RISK FACTORS IN THIS 49a. Diabetes: No (02/27/2020 01:13:Tosha Fay RN) 49b. Hypertension: No (02/27/2020 01:13:Tosha Fay RN) 49c. Previous Births: 0 (02/27/2020 01:13:Tosha Fay RN) 49d. Stillborns: No (02/27/2020 01:13:Tosha Fay RN) 49d. IUGR: No (02/27/2020 01:13:Tosha Fay RN) 49e. Infertility Treatment: No (02/27/2020 01:13:Tosha Fay RN) 49f. Previous Cesareans: 0 (02/27/2020 01:13:Marley Garcia RN) Mother's Height 50b. Height Inches: 67 (02/27/2020 18:06:QS system process) Mother's Weight 51a. Pre- Weight: 132 (02/27/2020 01:13:Tosha Fay RN) 51b. Weight at Time of Delivery: 156 (02/27/2020 18:06:QS system process) 52. Dt Last Normal Menses Began: 04/01/2019 00:00 (02/27/2020 01:13:Tosha Fay RN) Infections Present/Treated 53a. Gonorrhea: No (02/27/2020 01:13:Tosha Fay RN) Results this Hospital Visit : Unknown (02/27/2020 01:13:Tosha Fay RN) 53b. Syphilis: No (02/27/2020 01:13:Tosha Fay RN) Results this Hospital Visit: NONREACTIVE (02/27/2020 02:03:QS system process) 53c. Chlamydia: No (02/27/2020 01:13:Tosha Fay RN) Results this Hospital Visit: Negative (02/27/2020 01:13:Tosha Fay RN) 53d. Hepatitis B: No (02/27/2020 01:13:Tosha Sumeet, RN) Results this Hospital Visit: Negative (02/27/2020 01:13:Tosha Fay, RN) Obstetric Procedures 54a, b, c. Obstetric Procedures: Ultrasound; NST (02/27/2020 01:13:Tosha Fay, RN) Onset of Labor 56a. PROM >12 Hrs: 1.33 (02/27/2020 01:13:QS system process) 56b. Precipitous Labor <3 Hrs: 9 (02/27/2020 01:28:QS system process) 56c. Prolonged Labor > 20 Hrs: 9 (02/27/2020 01:28:QS system process) 57a. Induction of Labor: N/A (02/27/2020 01:13:Marley Garcia RN) 57c. Non-Vertex Presentation A: Vertex (02/27/2020 01:13:Marley Garcia RN) 57d. Steroids - Lung Mat: None (02/27/2020 01:13:Marley Garcia RN) 57d. Steroids - Lung Mat: Not Applicable (02/27/2020 01:13:Marley Garcia RN) 57e. Antibiotics During Labor: n/a (02/27/2020 01:13:Marley Garcia RN) 57g. Moderate/Heavy Meconium: Clear (02/27/2020 07:25:Marley Garcia RN) 57h. Intolerance of Labor: N/A (02/27/2020 01:13:Marley Garcia RN) : N/A (02/27/2020 01:13:Marley Garcia RN) 57i. Epidural/Spinal Anesthesia: Epidural (02/27/2020 01:13:Marley Garcia RN) Method of Delivery 58a. Forceps - Unsuccessful A: N/A (02/27/2020 01:13:Marley Garcia RN) 58b. Vacuum - Unsuccessful A: N/A (02/27/2020:13:Marley Garcia RN) 58c. Presentation at 58c. Presentation at - A : Vertex (02/27/2020 01:13:Marley Garcia RN) 58c. Presentation at - A : N/A (02/27/2020 01:13:Marley Garcia RN) 58c. Presentation at - A : Cephalic (02/27/2020 06:14:Tosha Fay RN) Final Route and Method of Del 58d. Baby A Route/Delivery: Vaginal (02/27/2020 08:45:Marley Garcia RN) 58e. Trial of Labor Attempted: No (02/27/2020 01:13:Marley Garcia RN) 58e. Trial of Labor Attempted A: N/A (02/27/2020 01:13:Marley Garcia RN) 58e. Trial of Labor Attempted B: N/A (02/27/2020 01:13:Marley Garcia RN) Maternal Morbidity 59b. 3rd or 4th Degree Lacs: None (02/27/2020 01:13:Marley Garcia RN) 59b. 3rd or 4th Degree Lacs: N/A (02/27/2020 01:13:Marley Garcia RN) Birthweight Baby A: 3911 (02/27/2020 01:13:Marley Garcia RN) 60a. Pounds : 8 (02/27/2020 01:13:QS system process) 60b. Ounces: 10 (02/27/2020:13:QS system process) 61. GA at Delivery Baby A: 40.6 (02/27/2020 01:13:Marley Garcia RN) : Full Term- 39- 40.6 Weeks (02/27/2020:13:QS system process) 62a. 5 Minute Baby A: 9 (02/27/2020 01:13:QS system process)
[2020-02-29] MEDS: IBUPROFEN 800 MG TABLET PO SCH (05:04)
[2020-02-29 08:18] VITALS: BP 107/65
--- NOTE | 2020-02-29 09:12 | PDOC DISCHARGE SUMMARY ---
Impression - Admit/DC Date/PCP Admission Date/Primary Care Provider: 02/27/20 01:39 SANDIP LI MD Discharge Date: 02/29/20 - Discharge Diagnosis (1) Anemia affecting Is this a current diagnosis for this admission?: Yes (2) Gestational thrombocytopenia Is this a current diagnosis for this admission?: Yes (3) Normal course Is this a current diagnosis for this admission?: Yes (4) Vaginal delivery Is this a current diagnosis for this admission?: Yes - Assessment Summary: s/p vaginal delivery with uncomplicated course. ready for deischarge home. - Additional Information Resuscitation Status: Full Code Discharge Diet: As Tolerated Discharge Activity: Balance Activity w/Rest, No Lifting/Push/Pulling, Pelvic Rest, No tub bath Referrals: SANDIP LI MD [Primary Care Provider] - Prescriptions: Docusate Sodium [Colace 100 mg Capsule] 100 mg PO BID #60 capsule Ibuprofen [Motrin 800 mg Tablet] 800 mg PO Q8 #60 tablet Home Medications: Pnv No.103/Folic/Om3s/Fish Oil [ Gummies] 1 tab PO DAILY 01/27/19 Docusate Sodium [Colace 100 mg Capsule] 100 mg PO BID #60 capsule 02/29/20 Ibuprofen [Motrin 800 mg Tablet] 800 mg PO Q8 #60 tablet 02/29/20 History of Present Illiness History of Present Illness: RAFAEL GALAVIZ is a 24 year old female Physical Exam - Physical Exam Vital Signs: Temp Pulse Resp BP Pulse Ox 97.7 F 94 18 107/65 100 02/29/20 07:53 02/29/20 07:53 02/29/20 07:53 02/29/20 07:53 02/29/20 07:53 Intake & Output 02/28/20 02/29/20 03/01/20 06:59 06:59 06:59 Intake Total 2100 Balance 2100 Weight 70.534 kg Results Laboratory Results: WBC 12.0 10^3/uL (4.0-10.5) H 02/28/20 06:22 RBC 3.65 10^6/uL (3.72-5.28) L 02/28/20 06:22 Hgb 8.9 g/dL (12.0-15.5) L 02/28/20 06:22 Hct 28.0 % (36.0-47.0) L 02/28/20 06:22 MCV 77 fl (80-97) L 02/28/20 06:22 MCH 24.4 pg (27.0-33.4) L 02/28/20 06:22 MCHC 31.8 g/dL (32.0-36.0) L 02/28/20 06:22 RDW 18.1 % (11.5-14.0) H 02/28/20 06:22 Plt Count 124 10^3/uL (150-450) L 02/28/20 06:22 Lymph % (Auto) 17.0 % (13-45) 02/27/20 02:03 [place] % (Auto) 7.7 % (3-13) 02/27/20 02:03 Eos % (Auto) 1.2 % (0-6) 02/27/20 02:03 Baso % (Auto) 0.4 % (0-2) 02/27/20 02:03 Absolute Neuts (auto) 6.2 10^3/uL (1.7-8.2) 02/27/20 02:03 Absolute Lymphs (auto) 1.4 10^3/uL (0.5-4.7) 02/27/20 02:03 Absolute Monos (auto) 0.6 10^3/uL (0.1-1.4) 02/27/20 02:03 Absolute Eos (auto) 0.1 10^3/uL (0.0-0.6) 02/27/20 02:03 Absolute Basos (auto) 0.0 10^3/uL (0.0-0.2) 02/27/20 02:03 Seg Neutrophils % 73.7 % (42-78) 02/27/20 02:03 Urine Color STRAW 02/27/20 00:50 Urine Appearance CLEAR 02/27/20 00:50 Urine pH 7.0 (5.0-9.0) 02/27/20 00:50 Ur Specific [place] 1.003 02/27/20 00:50 Urine Protein NEGATIVE mg/dL (NEGATIVE) 02/27/20 00:50 Urine Glucose (UA) NEGATIVE mg/dL (NEGATIVE) 02/27/20 00:50 Urine Ketones NEGATIVE mg/dL (NEGATIVE) 02/27/20 00:50 Urine Blood NEGATIVE (NEGATIVE) 02/27/20 00:50 Urine Nitrite NEGATIVE (NEGATIVE) 02/27/20 00:50 Urine Bilirubin NEGATIVE (NEGATIVE) 02/27/20 00:50 Urine Urobilinogen NEGATIVE mg/dL (<2.0) 02/27/20 00:50 Ur Leukocyte Esterase SMALL (NEGATIVE) H 02/27/20 00:50 Urine Ascorbic Acid NEGATIVE (NEGATIVE) 02/27/20 00:50 Urine Opiates Screen NEGATIVE 02/27/20 00:50 Urine Methadone Screen NEGATIVE 02/27/20 00:50 Ur Barbiturates Screen NEGATIVE 02/27/20 00:50 Ur Phencyclidine Scrn NEGATIVE 02/27/20 00:50 Ur Amphetamines Screen NEGATIVE 02/27/20 00:50 U Benzodiazepines Scrn NEGATIVE 02/27/20 00:50 Urine Cocaine Screen NEGATIVE 02/27/20 00:50 U Marijuana (THC) Screen NEGATIVE 02/27/20 00:50 RPR NONREACTIVE (NONREACTIVE) 02/27/20 02:03 Blood Type A NEGATIVE 02/28/20 06:22 Antibody Screen POSITIVE 02/27/20 02:03 Antibody Identification RHOGAM INDUCED ANTI-D 02/27/20 02:03 Screen NEGATIVE 02/28/20 06:22 Stroke Is this a Stroke Patient?: No Acute Heart Failure - Is this a Heart Failure Patient?: No
[2020-02-29] MEDS: FAMOTIDINE 20 MG TABLET PO SCH (09:53)
[2020-02-29] MEDS: PRENATAL VITAMIN W DHA CAPSULE PO SCH (09:53)
[2020-02-29] MEDS: FERROUS SULFATE 325 MG TABLET PO SCH (09:53)
[2020-02-29] MEDS: DOCUSATE SODIUM 100 MG CAPSULE PO SCH (09:53)
[2020-02-29] MEDS: SENNOSIDES/DOCUSATE 8.6-50 MG 1 EACH TABLET PO SCH (09:53)
== END 2020-02-29 13:57 | disposition home or self-care (01) | DRG 807 ==
LOC: LC 00:40 → LR 01:39 → 2S 14:20
PROVIDERS: ADMIT Student in an Organized Health Care Education/Training Program; ATTEND Obstetrics & Gynecology Gynecology
PROC: 10E0XZZ Delivery of Products of Conception, External Approach (ICD-10-PCS; principal; 2020-02-27)
PROC: 3E0234Z Introduction of Serum, Toxoid and Vaccine into Muscle, Percutaneous Approach (ICD-10-PCS; 2020-02-28)
DX: O99.12 Other diseases of the blood and blood-forming organs and certain disorders involving the immune mechanism complicating childbirth (principal); O26.893 Other specified pregnancy related conditions, third trimester; O69.81X0 Labor and delivery complicated by cord around neck, without compression, not applicable or unspecified; Z67.11 Type A blood, Rh negative; O76 Abnormality in fetal heart rate and rhythm complicating labor and delivery; Z3A.40 40 weeks gestation of pregnancy; O99.02 Anemia complicating childbirth; Z37.0 Single live birth; D64.9 Anemia, unspecified; D69.59 Other secondary thrombocytopenia
CPT/HCPCS: 1967; 36415; 80307; 81005; 85025; 85027; 85461; 86592; 86850; 86870; 86900; 86901; J2405; J2590; J2790; J2795; J3010; J3490